=== PATIENT | female | born 1980 | race Caucasian/White ===

== ENCOUNTER 2017-12-10 15:31 | Emergency (ER) | payer OTHER ==
[~2017-12-10] VITALS: Ht 170.2 cm; Wt 83.0 kg
[2017-12-10 15:48] VITALS: BP 119/86; Ht 170.2 cm; Wt 83.0 kg
== END 2017-12-10 17:19 | disposition home or self-care (01) ==
LOC: ED 15:31
DX: L03.011 Cellulitis of right finger (principal)
CPT/HCPCS: J0696; J2001

== ENCOUNTER 2017-12-11 15:02 | Emergency (ER) | payer OTHER ==
[~2017-12-11] VITALS: Ht 170.2 cm; Wt 83.5 kg
[2017-12-11 15:04] VITALS: Ht 170.2 cm; Wt 83.5 kg
[2017-12-11 16:22] VITALS: BP 155/71
== END 2017-12-11 16:22 | disposition home or self-care (01) ==
LOC: ED 15:02
DX: Z48.01 Encounter for change or removal of surgical wound dressing (principal)